=== PATIENT | female | born 1965 | race Caucasian/White ===

== ENCOUNTER → 2017-05-27 | Outpatient (CLI) | payer BC ==
[2017-05-27 07:49] LABS: CH 29.9; CHCM 32.1; HCT 48.1 % (34.0-46.0); HDW 1.99; HGB 15.7 gm/dL (11.4-16.0); MCH 30.5 pg (25.0-35.0); MCHC 32.7 g/dL (31.0-37.0); MCV 93.4 fL (80.0-100.0); Mean Platelet Volume 8.5; RBC 5.15 m/uL (3.80-5.40); RDW 13.1 % (11.5-15.5); WBC 8.2 k/uL (3.8-10.6)
[2017-05-27 08:12] LABS: ALT 61 U/L (9-52); AST 33 U/L (14-36); Alkaline Phosphatase 96 U/L (38-126); Anion Gap 10 mmol/L; Blood Urea Nitrogen 20 mg/dL (7-17); Calcium 9.7 mg/dL (8.4-10.2); Carbon Dioxide 28 mmol/L (22-30); Chloride 104 mmol/L (98-107); Cholesterol 187 mg/dL (<200); Glucose 86 mg/dL (74-99); HDL Cholesterol 74 mg/dL (40-60); Non-African American GFR(MDRD) >60 (>60 ml/min/1.73 sqM); Potassium 4.6 mmol/L (3.5-5.1); Sodium 142 mmol/L (137-145); Total Bilirubin 0.3 mg/dL (0.2-1.3); Total Protein 7.5 g/dL (6.3-8.2); Triglycerides 60 mg/dL (<150)
== END | disposition home or self-care (01) ==
LOC: LABWHC1 07:24
PROVIDERS: ATTEND Family Medicine
DX: Z00.00 Encounter for general adult medical examination without abnormal findings (principal); Z83.49 Family history of other endocrine, nutritional and metabolic diseases
CPT/HCPCS: 36415; 80053; 80061; 84439; 84443; 85027

== ENCOUNTER → 2017-09-10 | Outpatient (CLI) | payer BC ==
--- NOTE | 2017-09-12 10:54 | MM ---
Reason for exam: screening (asymptomatic). Last mammogram was performed 1 year ago. History: Took hormonal contraceptives for 10 years. Physical Findings: A clinical breast exam by your physician is recommended on an annual basis and results should be correlated with mammographic findings. MG Screening Mammo w CAD Bilateral CC and MLO view(s) were taken. Prior study comparison: August 29, 2016, bilateral MG screening mammo w CAD. August 28, 2015, bilateral MG screening mammo w CAD. There are scattered fibroglandular densities. No significant changes when compared with prior studies. ASSESSMENT: Negative, BI-RAD 1 RECOMMENDATION: Routine screening mammogram of both breasts in 1 year.
== END | disposition home or self-care (01) ==
LOC: RADMAMWWP 06:56
PROVIDERS: ATTEND Obstetrics & Gynecology
DX: Z12.31 Encounter for screening mammogram for malignant neoplasm of breast (principal)

== ENCOUNTER → 2018-08-11 | Outpatient (CLI) | payer BC ==
[2018-08-11 09:09] LABS: HCT 43.3 % (34.0-46.0); HGB 14.2 gm/dL (11.4-16.0); MCH 30.2 pg (25.0-35.0); MCHC 32.7 g/dL (31.0-37.0); MCV 92.2 fL (80.0-100.0); Mean Platelet Volume 8.2; Platelet Count 239 k/uL (150-450); RBC 4.69 m/uL (3.80-5.40); RDW 12.6 % (11.5-15.5); WBC 6.4 k/uL (3.8-10.6)
[2018-08-11 09:34] LABS: ALT 47 U/L (9-52); AST 32 U/L (14-36); Alkaline Phosphatase 71 U/L (38-126); Anion Gap 7 mmol/L; Blood Urea Nitrogen 20 mg/dL (7-17); Calcium 9.6 mg/dL (8.4-10.2); Carbon Dioxide 27 mmol/L (22-30); Chloride 108 mmol/L (98-107); Cholesterol 176 mg/dL (<200); Glucose 94 mg/dL (74-99); HDL Cholesterol 80 mg/dL (40-60); LDL Cholesterol,Calculated 89 mg/dL (0-99); Potassium 4.4 mmol/L (3.5-5.1); Sodium 142 mmol/L (137-145); Total Bilirubin 0.3 mg/dL (0.2-1.3); Total Protein 6.7 g/dL (6.3-8.2); Triglycerides 34 mg/dL (<150)
== END | disposition home or self-care (01) ==
LOC: LABWHC1 07:51
PROVIDERS: ATTEND Family Medicine
DX: Z00.00 Encounter for general adult medical examination without abnormal findings (principal); Z83.49 Family history of other endocrine, nutritional and metabolic diseases
CPT/HCPCS: 36415; 80053; 80061; 85027

== ENCOUNTER → 2018-09-23 | Outpatient (CLI) | payer BC ==
--- NOTE | 2018-09-28 10:19 | MM ---
Reason for exam: screening (asymptomatic). Last mammogram was performed 1 year ago. History: Took hormonal contraceptives for 10 years. Physical Findings: A clinical breast exam by your physician is recommended on an annual basis and results should be correlated with mammographic findings. MG Screening Mammo w CAD Bilateral CC and MLO view(s) were taken. Prior study comparison: September 10, 2017, bilateral MG screening mammo w CAD. August 29, 2016, bilateral MG screening mammo w CAD. The breast tissue is heterogeneously dense. This may lower the sensitivity of mammography. No significant changes when compared with prior studies. ASSESSMENT: Negative, BI-RAD 1 RECOMMENDATION: Routine screening mammogram of both breasts in 1 year.
== END | disposition home or self-care (01) ==
LOC: RADMAMWWP 07:08
PROVIDERS: ATTEND Obstetrics & Gynecology
DX: Z12.31 Encounter for screening mammogram for malignant neoplasm of breast (principal)
CPT/HCPCS: 77067

== ENCOUNTER 2019-01-15 22:03 | Emergency (ER) | payer BC ==
--- NOTE | 2019-01-15 22:19 | ED ---
Arrhythmia/Palpitations HPI - General Chief Complaint: Arrhythmia/Palpitations Stated Complaint: High Heart Rate Time Seen by Provider: 01/15/19 22:17 Source: patient, family Mode of arrival: ambulatory Limitations: no limitations - History of Present Illness Initial Comments: This patient is a 53-year-old woman who presents to be evaluated for palpitat ions. The patient states that she was feeling somewhat fatigued this evening so she had gone to bed early around 8 PM. She states she woke around 10 PM with a feeling like her heart was "beating out of her chest." She states she also was feeling like she couldn't catch her breath and felt sweaty. Patient denies having any chest pain. She states she has not had episodes like this previously. The patient denies history of sleep apnea but states she does snore. The patient states that the symptoms have seemed to resolve over the 20th 30 minutes that followed. She states that she feels back at her baseline now. MD Complaint: "heart racing" -: minutes(s) Context: awoke with symptoms Associated Symptoms: shortness of breath, anxiety, diaphoresis - Related Data Home Medications Medication Instructions Recorded Confirmed Fluticasone/Vilanterol [Breo 1 puff INHALATION RT-DAILY 01/15/19 01/15/19 Ellipta 200-25 Mcg INH] Montelukast [Singulair] 10 mg PO HS 01/15/19 01/15/19 Allergies Allergy/AdvReac Type Severity Reaction Status Date / Time amoxicillin Allergy Rash/Hives Verified 01/15/19 22:39 egg Allergy Dyspnea Verified 01/15/19 22:39 Penicillins Allergy Rash/Hives Verified 01/15/19 22:39 Review of Systems ROS Statement: Those systems with pertinent positive or pertinent negative responses have been documented in the HPI. ROS Other: All systems not noted in ROS Statement are negative. Constitutional: Denies: fever, weakness Eyes: Denies: vision change Respiratory: Reports: as per HPI. Denies: cough, dyspnea, wheezes, hemoptysis Cardiovascular: Reports: palpitations. Denies: chest pain, dyspnea on exertion, edema, syncope Gastrointestinal: Denies: abdominal pain, vomiting, melena, hematochezia Genitourinary: Denies: dysuria, hematuria Musculoskeletal: Denies: back pain Skin: Denies: rash Neurological: Denies: headache, weakness, numbness Past Medical History Past Medical History: Asthma History of Any Multi-Drug Resistant Organisms: None Reported Past Surgical History: No Surgical Hx Reported Past Psychological History: No Psychological Hx Reported Smoking Status: Former smoker Past Alcohol Use History: None Reported Past Drug Use History: None Reported General Exam Limitations: no limitations General appearance: alert, in no apparent distress Head exam: Present: atraumatic, normocephalic Eye exam: Present: normal appearance. Absent: scleral icterus, conjunctival in jection ENT exam: Present: normal oropharynx Neck exam: Present: normal inspection Respiratory exam: Present: normal lung sounds bilaterally. Absent: respiratory distress, wheezes, rales, rhonchi, stridor Cardiovascular Exam: Present: regular rate, normal rhythm, normal heart sounds. Absent: systolic murmur, diastolic murmur, rubs, gallop GI/Abdominal exam: Present: soft. Absent: distended, tenderness, guarding, rebound, rigid, mass Extremities exam: Present: normal inspection, normal capillary refill. Absent: pedal edema, calf tenderness Back exam: Present: normal inspection. Absent: CVA tenderness (R), CVA tend erness (L) Neurological exam: Present: alert Skin exam: Present: warm, dry, intact, normal color. Absent: rash Course Vital Signs 01/15/19 01/15/19 01/15/19 22:06 22:16 23:10 Temperature 97.9 F Pulse Rate 122 H 96 Respiratory 18 Rate Blood Pressure 146/84 143/94 148/91 O2 Sat by Pulse 100 97 93 L Oximetry EKG Findings - EKG Results: EKG: interpreted by ERMD, sinus rhythm, normal QRS, normal ST/T EKG shows: tachycardia (Rate 104 bpm) - Blocks, [place], Hypertrophy, ST Abn: QRS axis and voltage: right axis deviation (+90 to +180) Medical Decision Making - Lab Data Result diagrams: 01/15/19 22:23 01/15/19 22:23 Lab Results 01/15/19 01/15/19 01/15/19 Range/Units 22:23 22:23 22:23 WBC 9.8 (3.8-10.6) k/uL RBC 5.26 (3.80-5.40) m/uL Hgb 15.2 (11.4-16.0) gm/dL Hct 48.3 H (34.0-46.0) % MCV 91.9 (80.0-100.0) fL MCH 28.9 (25.0-35.0) pg MCHC 31.4 (31.0-37.0) g/dL RDW 13.0 (11.5-15.5) % Plt Count 278 (150-450) k/uL Neutrophils % 43 % Lymphocytes % 43 % Monocytes % 5 % Eosinophils % 7 % Basophils % 1 % Neutrophils # 4.2 (1.3-7.7) k/uL Lymphocytes # 4.2 (1.0-4.8) k/uL Monocytes # 0.5 (0-1.0) k/uL Eosinophils # 0.7 (0-0.7) k/uL Basophils # 0.1 (0-0.2) k/uL PT 9.4 (9.0-12.0) sec INR 0.8 (<1.2) APTT 29.4 (22.0-30.0) sec D-Dimer <0.17 (<0.60) mg/L FEU Sodium 138 (137-145) mmol/L Potassium 4.4 (3.5-5.1) mmol/L Chloride 106 (98-107) mmol/L Carbon Dioxide 24 (22-30) mmol/L Anion Gap 8 mmol/L BUN 20 H (7-17) mg/dL Creatinine 0.43 L (0.52-1.04) mg/dL Est GFR (CKD-EPI)AfAm >90 (>60 ml/min/1.73 sqM) Est GFR (CKD-EPI)NonAf >90 (>60 ml/min/1.73 sqM) Glucose 140 H (74-99) mg/dL Calcium 9.7 (8.4-10.2) mg/dL Magnesium 2.2 (1.6-2.3) mg/dL Total Bilirubin 0.5 (0.2-1.3) mg/dL AST 41 H (14-36) U/L ALT 40 (9-52) U/L Alkaline Phosphatase 118 (38-126) U/L Troponin I (0.000-0.034) ng/mL Total Protein 7.4 (6.3-8.2) g/dL Albumin 4.4 (3.5-5.0) g/dL TSH 6.670 H (0.465-4.680) mIU/L 01/15/19 Range/Units 22:23 WBC (3.8-10.6) k/uL RBC (3.80-5.40) m/uL Hgb (11.4-16.0) gm/dL Hct (34.0-46.0) % MCV (80.0-100.0) fL MCH (25.0-35.0) pg MCHC (31.0-37.0) g/dL RDW (11.5-15.5) % Plt Count (150-450) k/uL Neutrophils % % Lymphocytes % % Monocytes % % Eosinophils % % Basophils % % Neutrophils # (1.3-7.7) k/uL Lymphocytes # (1.0-4.8) k/uL Monocytes # (0-1.0) k/uL Eosinophils # (0-0.7) k/uL Basophils # (0-0.2) k/uL PT (9.0-12.0) sec INR (<1.2) APTT (22.0-30.0) sec D-Dimer (<0.60) mg/L FEU Sodium (137-145) mmol/L Potassium (3.5-5.1) mmol/L Chloride (98-107) mmol/L Carbon Dioxide (22-30) mmol/L Anion Gap mmol/L BUN (7-17) mg/dL Creatinine (0.52-1.04) mg/dL Est GFR (CKD-EPI)AfAm (>60 ml/min/1.73 sqM) Est GFR (CKD-EPI)NonAf (>60 ml/min/1.73 sqM) Glucose (74-99) mg/dL Calcium (8.4-10.2) mg/dL Magnesium (1.6-2.3) mg/dL Total Bilirubin (0.2-1.3) mg/dL AST (14-36) U/L ALT (9-52) U/L Alkaline Phosphatase (38-126) U/L Troponin I <0.012 (0.000-0.034) ng/mL Total Protein (6.3-8.2) g/dL Albumin (3.5-5.0) g/dL TSH (0.465-4.680) mIU/L Disposition Clinical Impression: Palpitations Disposition: HOME SELF-CARE Condition: Good Instructions (If sedation given, give patient instructions): Heart Palpitations (ED) Additional Instructions: As we discussed, follow with your doctor to see about a sleep study. Also follow-up to have the thyroid test rechecked. Return immediately if any of the symptoms that we discussed develop. Is patient prescribed a controlled substance at d/c from ED?: No Referrals: Matias Goode MD [Primary Care Provider] - 1-2 days
[2019-01-15 22:48] LABS: Basophils # (A) 0.1 k/uL (0-0.2); Basophils % (A) 1 %; Eosinophils # (A) 0.7 k/uL (0-0.7); Eosinophils % (A) 7 %; HCT 48.3 % (34.0-46.0); HGB 15.2 gm/dL (11.4-16.0); Lymphocytes # (A) 4.2 k/uL (1.0-4.8); Lymphocytes % (A) 43 %; MCH 28.9 pg (25.0-35.0); MCHC 31.4 g/dL (31.0-37.0); MCV 91.9 fL (80.0-100.0); Mean Platelet Volume 8.6; Monocytes # (A) 0.5 k/uL (0-1.0); Monocytes % (A) 5 %; Neutrophils # (A) 4.2 k/uL (1.3-7.7); Neutrophils % (A) 43 %; Platelet Count 278 k/uL (150-450); RBC 5.26 m/uL (3.80-5.40); WBC 9.8 k/uL (3.8-10.6)
[2019-01-15 22:58] LABS: Albumin 4.4 g/dL (3.5-5.0); Anion Gap 8 mmol/L; Calcium 9.7 mg/dL (8.4-10.2); Carbon Dioxide 24 mmol/L (22-30); Chloride 106 mmol/L (98-107); Glucose 140 mg/dL (74-99); Sodium 138 mmol/L (137-145); Total Bilirubin 0.5 mg/dL (0.2-1.3); Total Protein 7.4 g/dL (6.3-8.2)
[2019-01-15 22:59] LABS: ALT 40 U/L (9-52); AST 41 U/L (14-36); Alkaline Phosphatase 118 U/L (38-126); Blood Urea Nitrogen 20 mg/dL (7-17); Magnesium 2.2 mg/dL (1.6-2.3); Potassium 4.4 mmol/L (3.5-5.1)
[2019-01-15 23:03] LABS: D-Dimer <0.17 mg/L FEU (<0.60); INR 0.8 (<1.2); Partial Thromboplastin Time 29.4 sec (22.0-30.0); Prothrombin Time 9.4 sec (9.0-12.0)
--- NOTE | 2019-01-15 23:14 | XR ---
EXAM: XR Chest, 2 Views CLINICAL HISTORY: dysrhythmia TECHNIQUE: Frontal and lateral views of the chest. COMPARISON: No relevant prior studies available. FINDINGS: Lungs: Unremarkable. No consolidation. Pleural space: Unremarkable. No pneumothorax. Heart: Unremarkable. No cardiomegaly. Mediastinum: Unremarkable. Bones/joints: No acute osseous abnormality. IMPRESSION: No acute cardiopulmonary process.
[2019-01-16 00:14] VITALS: BP 130/93; PULSE 91; RESP 19; TEMP 98.3
== END 2019-01-16 00:11 | disposition home or self-care (01) ==
LOC: EC 22:03
DX: R00.2 Palpitations (principal); R06.02 Shortness of breath; R61 Generalized hyperhidrosis; J45.909 Unspecified asthma, uncomplicated; G47.30 Sleep apnea, unspecified; Z87.891 Personal history of nicotine dependence; Z79.51 Long term (current) use of inhaled steroids; Z79.899 Other long term (current) drug therapy; Z88.0 Allergy status to penicillin; Z91.012 Allergy to eggs
CPT/HCPCS: 36415; 71046; 80053; 83735; 84443; 84484; 85025; 85379; 85610; 85730; 93005; 99285

== ENCOUNTER → 2019-04-02 | Outpatient (CLI) | payer BC ==
[2019-04-02 17:19] LABS: T4, Free (Free Thyroxine) 1.7 ng/dL (0.80-1.80)
== END | disposition home or self-care (01) ==
LOC: LABWHC1 06:45
PROVIDERS: ATTEND Family Medicine
DX: E03.9 Hypothyroidism, unspecified (principal)
CPT/HCPCS: 36415; 84439; 84443; 84481

== ENCOUNTER → 2019-05-11 | Outpatient (CLI) | payer BC ==
[2019-05-11 17:49] LABS: T4, Free (Free Thyroxine) 1.4 ng/dL (0.80-1.80)
== END | disposition home or self-care (01) ==
LOC: LABWHC1 06:36
PROVIDERS: ATTEND Family Medicine
DX: E03.9 Hypothyroidism, unspecified (principal)
CPT/HCPCS: 36415; 84439; 84443; 84481

== ENCOUNTER → 2019-06-29 | Outpatient (CLI) | payer BC | END | disposition home or self-care (01) | LOC: LABWHC1 07:01 | PROVIDERS: ATTEND Internal Medicine Endocrinology, Diabetes & Metabolism | DX: E03.8 Other specified hypothyroidism (principal) | CPT/HCPCS: 36415; 84443 ==

== ENCOUNTER → 2019-07-28 | Outpatient (CLI) | payer BC ==
[2019-07-28 08:54] LABS: HCT 45.5 % (34.0-46.0); HGB 15.2 gm/dL (11.4-16.0); MCH 30.1 pg (25.0-35.0); MCHC 33.3 g/dL (31.0-37.0); MCV 90.3 fL (80.0-100.0); Mean Platelet Volume 8.2; Platelet Count 271 k/uL (150-450); RBC 5.04 m/uL (3.80-5.40); RDW 15.2 % (11.5-15.5); WBC 6.9 k/uL (3.8-10.6)
[2019-07-28 16:41] LABS: African American GFR (CKD) 129.9 (60.0-200.0); Albumin 4.6 g/dL (3.80-4.90); Albumin/Globulin Ratio 2.3 (1.60-3.17); Anion Gap 10.6 mmol/L (4.00-12.00); Calcium 9.8 mg/dL (8.7-10.3); Carbon Dioxide 26.4 mmol/L (21.6-31.8); Chol/HDL Ratio 2.42; LDL Cholesterol,Calculated 112.4 mg/dL (0.0-131.0); Potassium 4.8 mmol/L (3.5-5.5); Total Bilirubin 0.5 mg/dL (0.2-1.2); Total Protein 6.6 g/dL (6.2-8.2); VLDL Calculation 13.6 mg/dL (5.00-40.00)
[2019-07-28 16:49] LABS: T4, Free (Free Thyroxine) 1.3 ng/dL (0.80-1.80)
== END | disposition home or self-care (01) ==
LOC: LABWHC1 07:13
PROVIDERS: ATTEND Family Medicine
DX: Z00.01 Encounter for general adult medical examination with abnormal findings (principal); E66.3 Overweight; E03.9 Hypothyroidism, unspecified
CPT/HCPCS: 36415; 80053; 80061; 84439; 84443; 84481; 85027

== ENCOUNTER → 2019-10-12 | Outpatient (CLI) | payer BC ==
--- NOTE | 2019-10-14 10:07 | MM ---
Reason for exam: screening (asymptomatic). Last mammogram was performed 1 year and 1 month ago. History: Took hormonal contraceptives for 10 years. Physical Findings: A clinical breast exam by your physician is recommended on an annual basis and results should be correlated with mammographic findings. MG Screening Mammo w CAD Bilateral CC and MLO view(s) were taken. Prior study comparison: September 23, 2018, bilateral MG screening mammo w CAD. September 10, 2017, bilateral MG screening mammo w CAD. The breast tissue is heterogeneously dense. This may lower the sensitivity of mammography. No suspicious abnormality. No significant changes when compared with prior studies. ASSESSMENT: Negative, BI-RAD 1 RECOMMENDATION: Routine screening mammogram of both breasts in 1 year.
== END | disposition home or self-care (01) ==
LOC: RADMAMWWP 06:51
PROVIDERS: ATTEND Obstetrics & Gynecology
DX: Z12.31 Encounter for screening mammogram for malignant neoplasm of breast (principal)
CPT/HCPCS: 77067

== ENCOUNTER → 2020-04-14 | Outpatient (CLI) | payer BC | END | disposition home or self-care (01) | LOC: CPPFTMAIN 07:13 | PROVIDERS: ATTEND Internal Medicine Critical Care Medicine | DX: J44.9 Chronic obstructive pulmonary disease, unspecified (principal) | CPT/HCPCS: 94060; 94726; 94729 ==

== ENCOUNTER → 2020-05-02 | Outpatient (CLI) | payer BC ==
[2020-05-02 11:57] LABS: T4, Free (Free Thyroxine) 1.6 ng/dL (0.80-1.80)
[2020-05-02 12:29] LABS: Hemoglobin A1C 5.7 % (4.0-6.0)
== END | disposition home or self-care (01) ==
LOC: LABWHC1 07:04
PROVIDERS: ATTEND Internal Medicine Endocrinology, Diabetes & Metabolism
DX: E03.9 Hypothyroidism, unspecified (principal); E55.9 Vitamin D deficiency, unspecified; E88.9 Metabolic disorder, unspecified
CPT/HCPCS: 36415; 82306; 82947; 83036; 84439; 84443; 84481

== ENCOUNTER → 2020-07-28 | Outpatient (CLI) | payer BC ==
[2020-07-28 08:15] LABS: HCT 47.1 % (34.0-46.0); HGB 14.7 gm/dL (11.4-16.0); MCH 28.8 pg (25.0-35.0); MCHC 31.3 g/dL (31.0-37.0); MCV 92.2 fL (80.0-100.0); Mean Platelet Volume 8.1; Platelet Count 271 k/uL (150-450); RBC 5.11 m/uL (3.80-5.40); RDW 12.5 % (11.5-15.5); WBC 7.4 k/uL (3.8-10.6)
[2020-07-28 12:20] LABS: African American GFR (CKD) 121.5 (60.0-200.0); Albumin 4.4 g/dL (3.80-4.90); Albumin/Globulin Ratio 2.1 (1.60-3.17); Anion Gap 10.9 mmol/L (4.00-12.00); BUN/Creat Ratio 28.33 Ratio (12.00-20.00); Calcium 9.7 mg/dL (8.7-10.3); Carbon Dioxide 23.1 mmol/L (21.6-31.8); Chol/HDL Ratio 2.96; Globulin 2.1 g/dL (1.6-3.3); LDL Cholesterol,Calculated 123.2 mg/dL (0.0-131.0); Non-African American GFR(CKD) 104.8 (60.0-200.0); Potassium 4.7 mmol/L (3.5-5.5); Total Bilirubin 0.4 mg/dL (0.3-1.2); Total Protein 6.5 g/dL (6.2-8.2); VLDL Calculation 13.8 mg/dL (5.00-40.00)
[2020-07-28 12:28] LABS: T4, Free (Free Thyroxine) 1.4 ng/dL (0.80-1.80)
== END | disposition home or self-care (01) ==
LOC: LABWHC1 07:30
PROVIDERS: ATTEND Family Medicine
DX: Z00.01 Encounter for general adult medical examination with abnormal findings (principal); E55.9 Vitamin D deficiency, unspecified; E03.9 Hypothyroidism, unspecified; E66.3 Overweight
CPT/HCPCS: 36415; 80053; 80061; 82306; 84439; 84443; 84481; 85027

== ENCOUNTER → 2020-12-07 | Outpatient (CLI) | payer BC ==
--- NOTE | 2020-12-08 14:15 | MM ---
Reason for exam: screening (asymptomatic). Last mammogram was performed 1 year and 2 months ago. History: Patient is postmenopausal. Took hormonal contraceptives for 10 years. Physical Findings: A clinical breast exam by your physician is recommended on an annual basis and results should be correlated with mammographic findings. MG Screening Mammo w CAD Bilateral CC and MLO view(s) were taken. Prior study comparison: October 12, 2019, bilateral MG screening mammo w CAD. September 23, 2018, bilateral MG screening mammo w CAD. There are scattered fibroglandular densities. There is chronic nodularity in the right breast. No significant changes when compared with prior studies. ASSESSMENT: Benign, BI-RAD 2 RECOMMENDATION: Routine screening mammogram of both breasts in 1 year.
== END | disposition home or self-care (01) ==
LOC: RADMAMWWP 06:58
PROVIDERS: ATTEND Obstetrics & Gynecology
DX: Z12.31 Encounter for screening mammogram for malignant neoplasm of breast (principal)
CPT/HCPCS: 77067

== ENCOUNTER → 2020-12-13 | Outpatient (CLI) | payer BC ==
--- NOTE | 2020-12-13 13:24 | XR ---
Bilateral hands HISTORY: Pain, arthritis 3 views of each hand submitted Bone mineralization is reduced. Alignment is maintained. No fracture or dislocation. Small ossific de nsities present dorsal to the second distal interphalangeal joint which is well-corticated. Small oss ific density present distal to the ulnar styloid. Some subchondral sclerosis, marginal spurring prese nt at the distal interphalangeal joints IMPRESSION: Osteoarthritis.
--- NOTE | 2020-12-13 13:42 | XR ---
Bilateral feet HISTORY: Pain and arthritis 3 views of each foot submitted. Bone mineralization is reduced. Alignment maintained. There is loss of joint spaces especially at the metatarsophalangeal joints of the first digits, distal interphalangeal joints. Plantar calcaneal spurs are present. IMPRESSION: Osteopenia, osteoarthritis. Plantar calcaneal spurs.
== END | disposition home or self-care (01) ==
LOC: RADXRMAIN 11:14
PROVIDERS: ATTEND Internal Medicine Rheumatology
DX: M19.072 Primary osteoarthritis, left ankle and foot (principal); M19.071 Primary osteoarthritis, right ankle and foot; M19.042 Primary osteoarthritis, left hand; M19.041 Primary osteoarthritis, right hand; M77.32 Calcaneal spur, left foot; M77.31 Calcaneal spur, right foot

== ENCOUNTER → 2021-01-12 | Outpatient (CLI) | payer BC ==
[2021-01-12 15:26] LABS: Basophils # (A) 0.05 X 10*3/uL (0.00-0.10); Basophils % (A) 0.6 %; Eosinophils # (A) 0.54 X 10*3/uL (0.04-0.35); Eosinophils % (A) 6.8 %; HCT 47.1 % (37.2-46.3); HGB 15.1 g/dL (12.0-15.0); Lymphocytes # (A) 3.01 X 10*3/uL (0.90-5.00); Lymphocytes % (A) 37.9 %; MCH 29.1 pg (27.0-32.0); MCHC 32.1 g/dL (32.0-37.0); MCV 90.8 fL (80.0-97.0); Mean Platelet Volume 11.9 fL (9.5-12.2); Monocytes % (A) 6.3 %; Neutrophils # (A) 3.82 X 10*3/uL (1.80-7.70); Platelet Count 301 X 10*3/uL (140-440); RBC 5.19 X 10*6/uL (4.10-5.20); RDW 12.7 % (11.5-14.5); WBC 7.95 X 10*3/uL (4.50-10.00)
[2021-01-12 18:13] LABS: Gliadin AB IgA, Deaminated NEGATIVE (NEGATIVE); Gliadin AB IgA, Unit 0.8 U/mL; Gliadin AB IgG, Deaminated NEGATIVE (NEGATIVE)
[2021-01-12 19:25] LABS: African American GFR (CKD) 128.1 (60.0-200.0); Albumin 4.7 g/dL (3.80-4.90); Albumin/Globulin Ratio 2.04 (1.60-3.17); Anion Gap 11.5 mmol/L (4.00-12.00); Calcium 9.9 mg/dL (8.7-10.3); Carbon Dioxide 22.5 mmol/L (21.6-31.8); Globulin 2.3 g/dL (1.6-3.3); Non-African American GFR(CKD) 110.5 (60.0-200.0); Total Bilirubin 0.3 mg/dL (0.2-1.2)
== END | disposition home or self-care (01) ==
LOC: LABWHC1 09:18
PROVIDERS: ATTEND Nurse Practitioner
DX: R19.7 Diarrhea, unspecified (principal)
CPT/HCPCS: 36415; 80053; 83516; 85025

== ENCOUNTER 2021-01-23 07:50 | Day surgery (SDC) | payer BC ==
[2021-01-19 09:03] VITALS: BMI 32.7
[2021-01-23] MEDS ORDERED: LIDOCAINE 1% (10MG/ML) FOR IV START INTRADERMA ONE (08:25)
[2021-01-23] MEDS: LACTATED RINGERS 1,000 ML IV SCH ×2 (08:25→09:10)
[2021-01-23 08:33] VITALS: RESP 16; TEMP 97.2
[2021-01-23] MEDS ORDERED: fentaNYL (PF) 50 MCG/ML 2 ML AMP ONE (09:13)
[2021-01-23] MEDS ORDERED: MIDAZOLAM 2 MG/2 ML VIAL ONE (09:13)
[2021-01-23] MEDS ORDERED: ETOMIDATE 2 MG/ML 10 ML VIAL ONE (09:13)
[2021-01-23] MEDS ORDERED: LIDOCAINE 1% INJ 10MG/ML (20 ML MDV) ONE (09:13)
--- NOTE | 2021-01-23 09:58 | P.PCN ---
Date of Procedure: 01/23/21 Description of Procedure: Brief history: Patient is a 55-year-old female with a medical history significant for lactose intolerance, asthma, hypothyroidism, Raynaud's and osteoarthritis presenting for outpatient EGD and colonoscopy for evaluation of GERD and diarrhea. Patient reports intermittent reflux over the past 5 months described as burning and reflux/regurgitation. No history of EGD. She reports frequent episodes of loose bowel movements with associated urgency and mucus per rectum. Procedure performed: Esophagogastroduodenoscopy with biopsy Colonoscopy Estimated blood loss: Minimal. Preoperative diagnosis: GERD, diarrhea Anesthesia: [facility] Procedure: After informed consent was obtained from the patient was brought into the endoscopy unit and IV sedation was administered by anesthesia under continuous monitoring. Initially upper endoscopy was done. The Olympus GF 190 video endoscope was inserted into the mouth and esophagus intubated without any difficulty and was gradually advanced into the stomach and duodenum and carefully examined. The bulb and second part of the duodenum appeared normal, with biopsies taken. The scope was then withdrawn into the stomach adequately insufflated with air and upon careful examination the antrum and body, cardia a nd fundus appeared normal, with some mild scattered erythema in the antrum and body suggestive of mild gastritis with biopsies of the antrum and body taken as well as some benign-appearing. The scope was then withdrawn into the esophagus. The GE junction was located at 35 cm to the incisors and biopsied. It appeared regular with no erythema erosions or ulcerations. Rest of the esophagus appear ed normal. Patient tolerated the procedure well. At this time the patient continued to remain sedation. Initial digital rectal examination was normal. Olympus CF 190 video colonoscope was then inserted into the rectum and gradually advanced to the cecum without any difficulty. Careful examination was performed as the scope was gradually being withdrawn. The prep was excellent. The cecum, ascending colon, transverse colon, descending colon, sigmoid colon and rectum appeared normal with biopsies taken of the right and left colon due to altered bowel function and of normal-appearing terminal ileum. 2 diminutive polyps measuring 1-2 mm in size removed from the descending colon and cecum with cold forcep polypectomy. Retroflexion was performed in the rectum and no lesions were noted, low-grade internal hemorrhoids. Patient tolerated the procedure well. Impression: 1. Mild gastritis. Benign-appearing gastric polyps likely fundic gland polyp. Biopsies of the duodenum, antrum body, gastric polyps and GE junction. 2. 2 diminutive polyps removed with cold forcep polypectomy from the cecum and descending colon. Normal-appearing colon from rectum to cecum with normal- appearing terminal ileum and random biopsies taken of the right colon, left colon and TI in the setting of altered bowel function and diarrhea. Recommendations: Findings of this examination were discussed with the patient as well as and her family. Okay to resume diet. Okay to resume medications. Await pathology from biopsies and polypectomy. Recommend repeat colonoscopy in 7 years for colon polyps pending pathology from polypectomies.
[2021-01-23 10:33] VITALS: BP 108/74; PULSE 86
== END 2021-01-23 11:24 | disposition home or self-care (01) ==
LOC: ORWHC2ENDO 07:50
PROVIDERS: ATTEND Internal Medicine
DX: K29.70 Gastritis, unspecified, without bleeding (principal); K31.7 Polyp of stomach and duodenum; D12.0 Benign neoplasm of cecum; K64.8 Other hemorrhoids; Z87.891 Personal history of nicotine dependence; Z88.0 Allergy status to penicillin; Z91.012 Allergy to eggs; Z79.890 Hormone replacement therapy; Z79.899 Other long term (current) drug therapy; Z98.890 Other specified postprocedural states; J45.909 Unspecified asthma, uncomplicated; E07.9 Disorder of thyroid, unspecified; D72.820 Lymphocytosis (symptomatic); K29.50 Unspecified chronic gastritis without bleeding
CPT/HCPCS: 88305; 88342; 45380; 43239; J2250; J2001; J3010

== ENCOUNTER → 2021-05-11 | Outpatient (CLI) | payer BC | END | disposition home or self-care (01) | DX: E03.9 Hypothyroidism, unspecified (principal) ==

== ENCOUNTER 2021-08-02 15:35 | Emergency (ER) | payer BC ==
[2021-08-02 15:41] VITALS: TEMP 98.1
[2021-08-02] MEDS ORDERED: MORPHINE SULFATE 2 MG/ML SYRINGE IM ONE (15:48)
--- NOTE | 2021-08-02 15:53 | ED ---
General Adult HPI - General Chief complaint: Extremity Injury, Upper Stated complaint: Fall Time Seen by Provider: 08/02/21 15:42 Source: patient, family, RN notes reviewed Mode of arrival: ambulatory Limitations: no limitations - History of Present Illness Initial comments: This is a tearful 55-year-old female, alert and oriented 4, presents to the em ergency room with complaints of getting her left foot caught in the car while trying to get out falling outward onto the ground onto her left shoulder. She states that she is unable to bear weight on the left foot and she is also unable to lift her left arm. She does have a history of bilateral clavicle fractures in the past. The pain is constant and happened about one hour ago. She denies hitting her head is not on any blood thinners. Denies loss of consciousness. Her only medical history is asthma. -: hour(s) (1) Location: left, upper extremity (Shoulder), lower extremity (Ankle) Radiation: non-radiation Severity scale (1-10): 7 Quality: constant Consistency: constant Improves with: immobilization Worsens with: movement Associated Symptoms: denies other symptoms Treatments Prior to Arrival: none - Related Data Home Medications Medication Instructions Recorded Confirmed Fluticasone/Vilanterol [Breo 1 puff INHALATION RT-DAILY 01/15/19 08/02/21 Ellipta 200-25 Mcg INH] Montelukast [Singulair] 10 mg PO HS 01/15/19 08/02/21 Levothyroxine Sodium [Synthroid] 50 mcg PO DIRECTED 01/19/21 08/02/21 Allergies Allergy/AdvReac Type Severity Reaction Status Date / Time amoxicillin Allergy Rash/Hives Verified 08/02/21 17:46 egg Allergy Anaphylaxis Verified 08/02/21 17:46 milk Allergy Anaphylaxis Verified 08/02/21 17:46 Penicillins Allergy Rash/Hives Verified 08/02/21 17:46 Review of Systems ROS Statement: Those systems with pertinent positive or pertinent negative responses have been documented in the HPI. ROS Other: All systems not noted in ROS Statement are negative. Past Medical History Past Medical History: Asthma Additional Past Medical History / Comment(s): reoccuring diarrhea, lots of acid reflux coming up throat History of Any Multi-Drug Resistant Organisms: None Reported Past Surgical History: No Surgical Hx Reported Additional Past Surgical History / Comment(s): lymph nodes removed from neck, cyst removed from neck, ganglion cyst removed right wrist Past Anesthesia/Blood Transfusion Reactions: No Reported Reaction Past Psychological History: No Psychological Hx Reported Smoking Status: Former smoker General Exam Limitations: no limitations General appearance: alert, in no apparent distress Head exam: Present: atraumatic, normocephalic, normal inspection Eye exam: Present: normal appearance, PERRL, EOMI. Absent: scleral icterus, conjunctival injection, periorbital swelling ENT exam: Present: normal exam, normal oropharynx, mucous membranes moist Neck exam: Present: normal inspection, full ROM. Absent: tenderness, meningismus, lymphadenopathy Respiratory exam: Present: normal lung sounds bilaterally. Absent: respiratory distress, wheezes, rales, rhonchi, stridor, decreased breath sounds Cardiovascular Exam: Present: regular rate, normal rhythm, normal heart sounds. Absent: systolic murmur, diastolic murmur, rubs, gallop, clicks GI/Abdominal exam: Present: soft, normal bowel sounds. Absent: distended, tenderness, guarding, rebound, rigid Left Shoulder Exam: Present: tenderness. Absent: full ROM, abrasion, laceration Neurosensory exam: Present: 2-point discrimination, radial nerve intact, ulnar nerve intact, median nerve intact Vascular: Present: normal capillary refill, radial pulse. Absent: vascular compromise Left Ankle exam: Present: tenderness, swelling. Absent: erythema Foot/Toe exam: Present: normal inspection. Absent: ecchymosis Neurovascular tendon exam: Present: no vascular compromise. Absent: abnormal cap refill Gait: unable to bear weight Back exam: Present: normal inspection. Absent: tenderness Neurological exam: Present: alert, oriented X3, CN II-XII intact Psychiatric exam: Present: normal affect, normal mood, anxious, other (Crying) Skin exam: Present: warm, dry, intact, normal color. Absent: rash, cyanosis, diaphoretic, petechiae, pallor Course Vital Signs 08/02/21 08/02/21 15:37 18:00 Temperature 98.1 F Pulse Rate 80 65 Respiratory 16 20 Rate Blood Pressure 107/56 95/64 O2 Sat by Pulse 97 99 Oximetry Procedures - Orthopedic Splinting/Casting Injury #1 Side: left Lower Extremity Injury Location: short leg Lower Extremity Immobilizer: posterior splint, Zac wrap, synthetic pre-padded splint Injury #2 Side: left Upper Extremity Immobilizer: sling/shoulder immobilizer Medical Decision Making - Medical Decision Making X-ray of left shoulder shows fracture to the proximal lateral left humerus with impaction. There is evidence of surrounding hemearthrosis. The AC joint is intact. X-ray of the left ankle shows a trimalleolar fracture of the left ankle with displacement of the lateral malleolus component 2 mm. There is widening of the medial tibial talar joint space of 3.4 mm. patient's pain is improved with morphine. She is agreeable to being transferred to [facility] for continuation of care for fractures. I did speak with Dr. Avery who accepted the patient. Patient has neurovascularly intact. Capillary refill is less than 2 seconds. Pedal pulses are present. Patient was put in a short leg splint. Left arm was placed in a sling. Patient was accepted by ER attending Dr. Lynch at 1800. The trauma surgeon is Dr. Lyon. She'll be sent by ambulance. Disposition Clinical Impression: Fracture of humerus, Trimalleolar fracture of ankle, closed Disposition: OTHER INSTITUTION NOT DEFINED Is patient prescribed a controlled substance at d/c from ED?: No Referrals: Matias Goode MD [Primary Care Provider] - 1-2 days Time of Disposition: 17:48 - Out of Hospital Transfer - Req. Specs Out of Hospital Transfer - Requested Specifics: Other Emergency Center ([facility])
--- NOTE | 2021-08-02 16:30 | XR ---
EXAMINATION TYPE: XR ankle complete LT, XR tibia fibula LT DATE OF EXAM: 08/02/2021 COMPARISON: NONE HISTORY: Pain TECHNIQUE: 3 views of the left ankle are submitted for evaluation. 2 views of left tibia and fibula a re also submitted. FINDINGS: There is evidence of trimalleolar fracture with components noted of the lateral malleolus, medial malleolus and posterior tibial malleolus. Displacement lateral malleolar component of 2 mm. Morgan rrounding soft tissue swelling noted. Widening of the medial tibiotalar joint space of 3.4 mm. Mild w idening of the ankle mortise. The remainder of the tibia and fibula are intact. IMPRESSION: 1. Trimalleolar fracture of the left ankle.
--- NOTE | 2021-08-02 16:32 | XR ---
EXAMINATION TYPE: XR shoulder complete LT, XR clavicle LT DATE OF EXAM: 08/02/2021 CLINICAL HISTORY: pain COMPARISON: NONE TECHNIQUE: Three views of the left shoulder are obtained. 2 views of the left clavicle are also subm itted. FINDINGS: There is fracture of the left humeral neck with impaction seen. Fracture component noted of the greater humeral tuberosity as well. There is evidence of surrounding hemarthrosis. No additional fractures seen. AC joint intact. IMPRESSION: 1 fractures proximal lateral left humerus as noted.
[2021-08-02] MEDS ORDERED: SODIUM CHLORIDE 0.9% 500 ML 500 ML IV STA (17:39)
[2021-08-02 18:05] VITALS: BP 95/64; PULSE 65; RESP 20
== END 2021-08-02 19:05 | disposition other institution (70) ==
LOC: EC 15:35
DX: S42.201A Unspecified fracture of upper end of right humerus, initial encounter for closed fracture (principal); S82.852A Displaced trimalleolar fracture of left lower leg, initial encounter for closed fracture; J45.909 Unspecified asthma, uncomplicated; Z87.891 Personal history of nicotine dependence; Z88.0 Allergy status to penicillin; Z91.012 Allergy to eggs; Z91.011 Allergy to milk products; Z79.51 Long term (current) use of inhaled steroids; W18.30XA Fall on same level, unspecified, initial encounter; Y92.89 Other specified places as the place of occurrence of the external cause
CPT/HCPCS: 96360; 96372; 99284; 73030; 73000; 73590; 73610; J2270

== ENCOUNTER → 2021-11-23 | Outpatient (CLI) | payer BC ==
--- NOTE | 2021-11-23 08:19 | BD ---
EXAMINATION TYPE: Axial Bone Density DATE OF EXAM: 11/23/2021 COMPARISON: NONE CLINICAL HISTORY: osteoporosis . Unspecified fracture. Height: 4'11 Weight: 134 FRAX RISK QUESTIONS: History of Fracture in Adulthood: y Secondary Osteoporosis: RISK FACTORS HISTORY OF: Family History of Osteoporosis: y Diet low in dairy products/other sources of calcium: y Postmenopausal woman: y MEDICATIONS: Thyroid Medications: Which medication: Synthroid How Lon years Additional Medications: asthma,singulair Additional History: fell onbroke left ankle and shoulder EXAM MEASUREMENTS: Bone mineral densitometry was performed using the [employer] System. Bone mineral density as measured about the Lumbar spine is: ----- L1-L4(G/cm2): 0.734 T Score Values are as follows: ----- L2: -4.3 ----- L3: -3.1 ----- L4: -4.1 ----- L1-L4:-3.7 Bone mineral density about the R hip (g/cm2): 0.699 Bone mineral density about the L hip (g/cm2): 0.601 T Score values are as follows: -----R Neck: -2.4 -----L Neck: -3.1 -----R Total: -2.2 -----L Total: -3.3 IMPRESSION: Osteoporosis (T Score less than -2.5). There is increased fracture risk and therapy is usually indicated based on age. Re-Screen 1-2 years. NOTE: T-SCORE=SD OF THE YOUNG ADULT MEAN.
== END | disposition home or self-care (01) ==
LOC: RADBDWWP 07:02
PROVIDERS: ATTEND Orthopaedic Surgery
DX: S42.202A Unspecified fracture of upper end of left humerus, initial encounter for closed fracture (principal); S82.892A Other fracture of left lower leg, initial encounter for closed fracture; S82.852A Displaced trimalleolar fracture of left lower leg, initial encounter for closed fracture; M81.0 Age-related osteoporosis without current pathological fracture; X58.XXXA Exposure to other specified factors, initial encounter
CPT/HCPCS: 77080

== ENCOUNTER → 2021-11-23 | Outpatient (CLI) | payer BC ==
[2021-11-23 17:27] LABS: T4, Free (Free Thyroxine) 1.54 ng/dL (0.800-1.800)
== END | disposition home or self-care (01) ==
LOC: LABWHC1 07:38
PROVIDERS: ATTEND Internal Medicine Endocrinology, Diabetes & Metabolism
DX: R73.02 Impaired glucose tolerance (oral) (principal)
CPT/HCPCS: 36415; 82306; 84439; 84443; 84481

== ENCOUNTER → 2022-05-09 | Outpatient (CLI) | payer BC ==
[2022-05-09 11:50] LABS: T4, Free (Free Thyroxine) 1.54 ng/dL (0.800-1.800)
== END | disposition home or self-care (01) ==
LOC: LABWHC1 07:12
PROVIDERS: ATTEND Internal Medicine Endocrinology, Diabetes & Metabolism
DX: R73.02 Impaired glucose tolerance (oral) (principal)
CPT/HCPCS: 36415; 82306; 82947; 83036; 84439; 84443; 84481

== ENCOUNTER → 2022-05-21 | Outpatient (CLI) | payer BC ==
--- NOTE | 2022-05-22 08:59 | MM ---
Reason for Exam: Screening (asymptomatic). Last mammogram was performed 1 year(s) and 5 month(s) ago. Patient History: Menarche at age 14. First Full-Term at age 26. Postmenopausal. Patient used Hormonal Contraceptives for 10 years. Risk Values: Malaika 5 year model risk: 1.0%. NCI Lifetime model risk: 7.5%. Prior Study Comparison: 09/23/2018 Bilateral Screening Mammogram, [facility]. 10/12/2019 Bilateral Screening Mammogram, [facility]. 12/07/2020 Bilateral Screening Mammogram, [facility]. Tissue Density: There are scattered fibroglandular densities. Findings: Analyzed By CAD. There is no suspicious group of microcalcifications or new suspicious mass in either breast. Overall Assessment: Negative, BI-RAD 1 Management: Screening Mammogram of both breasts in 1 year. A clinical breast exam by your physician is recommended on an annual basis and results should be correlated with mammographic findings. Electronically signed and approved by: Luis Cunningham M.D. Radiologis
== END | disposition home or self-care (01) ==
LOC: RADMAMWWP 06:51
PROVIDERS: ATTEND Obstetrics & Gynecology
DX: Z12.31 Encounter for screening mammogram for malignant neoplasm of breast (principal); Z78.0 Asymptomatic menopausal state
CPT/HCPCS: 77063; 77067

== ENCOUNTER → 2023-02-19 | Outpatient (CLI) | payer BC ==
[2023-02-19 15:07] LABS: HCT 49.8 % (37.2-46.3); HGB 15.5 g/dL (12.0-15.0); MCH 29.1 pg (27.0-32.0); MCHC 31.1 g/dL (32.0-37.0); MCV 93.4 fL (80.0-97.0); Mean Platelet Volume 11.9 fL (9.5-12.2); NRBC Per 100 WBC 0 /100 WBCS (0.0-0.0); Platelet Count 283 X 10*3/uL (140-440); RBC 5.33 X 10*6/uL (4.10-5.20); RDW 12.8 % (11.5-14.5); WBC 10.25 X 10*3/uL (4.50-10.00)
[2023-02-19 15:24] LABS: ALT 44 U/L (8-44); AST 30 U/L (13-35); African American GFR (CKD) 121.2 (60.0-200.0); Albumin 4.5 g/dL (3.8-4.9); Albumin/Globulin Ratio 1.69 (1.60-3.17); Alkaline Phosphatase 116 U/L (41-126); BUN/Creat Ratio 28.98 Ratio (12.00-20.00); Blood Urea Nitrogen 16.4 mg/dL (9.0-27.0); Calcium 9.6 mg/dL (8.7-10.3); Chloride 107 mmol/L (96-109); Globulin 2.7 g/dL (1.6-3.3); Glucose 94 mg/dL (70-110); LDL Cholesterol,Calculated 146.8 mg/dL (0.0-131.0); Non-African American GFR(CKD) 104.6 (60.0-200.0); Potassium 4.6 mmol/L (3.5-5.5); Sodium 142 mmol/L (135-145); Total Protein 7.2 g/dL (6.2-8.2)
== END | disposition home or self-care (01) ==
LOC: LABWHC1 08:56
PROVIDERS: ATTEND Family Medicine
DX: Z00.01 Encounter for general adult medical examination with abnormal findings (principal); E66.3 Overweight; R53.83 Other fatigue
CPT/HCPCS: 36415; 80053; 80061; 85027

== ENCOUNTER → 2023-05-17 | Outpatient (CLI) | payer BC ==
[2023-05-17 13:53] LABS: T4, Free (Free Thyroxine) 1.55 ng/dL (0.80-1.80)
== END | disposition home or self-care (01) ==
LOC: LABWHC1 08:04
PROVIDERS: ATTEND Otolaryngology
DX: E03.9 Hypothyroidism, unspecified (principal); E55.9 Vitamin D deficiency, unspecified; J30.89 Other allergic rhinitis
CPT/HCPCS: 36415; 82306; 82784; 82947; 83036; 84439; 84443; 84481; 86001

== ENCOUNTER → 2023-06-25 | Outpatient (CLI) | payer BC ==
--- NOTE | 2023-06-25 13:52 | MM ---
Reason for Exam: Screening (asymptomatic). Last mammogram was performed 1 year(s) and 1 month(s) ago. Patient History: Menarche at age 14. First Full-Term at age 26. Postmenopausal. Patient used Hormonal Contraceptives for 10 years. Risk Values: Malaika 5 year model risk: 1.1%. NCI Lifetime model risk: 7.4%. Prior Study Comparison: 10/12/2019 Bilateral Screening Mammogram, [facility]. 12/07/2020 Bilateral Screening Mammogram, [facility]. 05/21/2022 Bilateral MG 3D screening mammo w/cad, [facility]. Tissue Density: The breast tissue is heterogeneously dense. This may lower the sensitivity of mammography. Findings: Analyzed By CAD. There is no suspicious group of microcalcifications or new suspicious mass in either breast. Overall Assessment: Benign, BI-RAD 2 Management: Screening Mammogram of both breasts in 1 year. . Patient should continue monthly self-breast exams. A clinical breast exam by your physician is recommended on an annual basis. This exam should not preclude additional follow-up of suspicious palpable abnormalities. Note on Malaika scores and lifetime risk: 1. A Malaika score greater than 3% is considered moderate risk. If this is the case, consider specialist referral to assess eligibility for a risk reducing agent. 2. If overall lifetime risk for the development of breast cancer is 20% or higher, the patient may qualify for future screening with alternating mammogram and breast MRI. Electronically signed and approved by: Luis Cunningham M.D. Radiologis
== END | disposition home or self-care (01) ==
LOC: RADMAMWWP 07:04
PROVIDERS: ATTEND Obstetrics & Gynecology
DX: Z12.31 Encounter for screening mammogram for malignant neoplasm of breast (principal); Z78.0 Asymptomatic menopausal state
CPT/HCPCS: 77063; 77067; 86001

== ENCOUNTER → 2023-06-25 | Outpatient (CLI) | payer BC | END | disposition home or self-care (01) | LOC: LABWHC1 07:06 | PROVIDERS: ATTEND Otolaryngology | DX: Z53.9 Procedure and treatment not carried out, unspecified reason (principal) ==

== ENCOUNTER → 2023-11-25 | Outpatient (CLI) | payer BC ==
--- NOTE | 2023-11-25 09:27 | BD ---
EXAMINATION TYPE: Axial Bone Density DATE OF EXAM: 11/25/2023 CLINICAL HISTORY: 58 years old Female. ICD-10 CODE: M81.0 AGE-RELATED OSTEOPOROSIS W/O CURRENT PATH Height: 59.5 Weight: 165 FRAX RISK QUESTIONS: Family History (Parent hip fracture): no History of Fracture in Adulthood: yes, many bilat forearms and lt hand, lt ankle, lt shoulder, rt archie l, bilat clavicles Secondary Osteoporosis: no RISK FACTORS HISTORY OF: History of Wrist Fracture: yes When: 20 yrs ago MEDICATIONS: Thyroid Medications: yes Which medication: Synthroid How Lon+ years Osteoporosis Medications: yes Which medication: alendronate How Lon years EXAM MEASUREMENTS: Bone mineral densitometry was performed using the [employer]. Bone mineral density as measured about the Lumbar spine is: ----- L1-L4(G/cm2): 0.778 T Score Values are as follows: ----- L1: -3.9 ----- L2: -3.6 ----- L3: -3.1 ----- L4: -3.1 ----- L1-L4: -3.4 Z Score Values are as follows: ----- L1: -3.3 ----- L2: -3.0 ----- L3: -2.5 ----- L4: -2.6 ----- L1-L4: -2.8 Bone mineral density has: Increased 6% since study of: 11/23/2021 Bone mineral density about the R hip (g/cm2): 0.761 Bone mineral density about the L hip (g/cm2): 0.671 T Score values are as follows: -----R Neck: -2.0 -----L Neck: -2.5 -----R Total: -2.0 -----L Total: -2.7 Z Score values are as follows: -----R Neck: -1.2 -----L Neck: -1.7 -----R Total: -1.5 -----L Total: -2.2 Bone mineral density has: Increased 8.5% since study of: 11/23/2021 FRAX%s: The graph provided illustrates a 16.5% chance for a major osteoporotic fx and a 3.3% chance f or the hips probability for fx in 10 years time. IMPRESSION: Osteoporosis (T Score less than -2.5). There is increased fracture risk and therapy is usually indicated based on age. Re-Screen 1-2 years. NOTE: T-SCORE=SD OF THE YOUNG ADULT MEAN.
== END | disposition home or self-care (01) ==
LOC: RADBDWWP 07:08
PROVIDERS: ATTEND Internal Medicine Rheumatology
DX: M81.0 Age-related osteoporosis without current pathological fracture (principal)
CPT/HCPCS: 77080

== ENCOUNTER → 2024-02-17 | Outpatient (CLI) | payer BC ==
[2024-02-17 12:28] LABS: HGB 15.7 g/dL (12.0-15.0); MCH 29.8 pg (27.0-32.0); NRBC Per 100 WBC 0 X 10*3/uL (0.00-0.01); Platelet Count 276 X 10*3/uL (140-440); RBC 5.27 X 10*6/uL (4.10-5.20); RDW 12.8 % (11.5-14.5); WBC 9.34 X 10*3/uL (4.50-10.00)
[2024-02-17 12:38] LABS: ALT 58 U/L (8-44); AST 39 U/L (13-35); Albumin 4.6 g/dL (3.8-4.9); Albumin/Globulin Ratio 1.53 Ratio (1.60-3.17); Alkaline Phosphatase 103 U/L (41-126); BUN/Creat Ratio 19.33 Ratio (12.00-20.00); Blood Urea Nitrogen 11.6 mg/dL (9.0-27.0); Calcium 9.7 mg/dL (8.7-10.3); Carbon Dioxide 20.3 mmol/L (21.6-31.8); Chloride 104 mmol/L (96-109); Chol/HDL Ratio 3.91 Ratio; Glucose 95 mg/dL (70-110); LDL Cholesterol,Calculated 148.9 mg/dL (0.0-131.0); Potassium 4.5 mmol/L (3.5-5.5); Sodium 141 mmol/L (135-145); Total Bilirubin 0.4 mg/dL (0.3-1.2); Total Protein 7.6 g/dL (6.2-8.2)
== END | disposition home or self-care (01) ==
LOC: LABWHC1 07:14
PROVIDERS: ATTEND Family Medicine
DX: Z00.01 Encounter for general adult medical examination with abnormal findings (principal); E66.3 Overweight; R53.83 Other fatigue
CPT/HCPCS: 36415; 80053; 80061; 85027

== ENCOUNTER → 2024-04-09 | Outpatient (CLI) | payer BC ==
[2024-04-09 11:35] LABS: ALT 58 U/L (8-44); AST 39 U/L (13-35); Albumin 4.4 g/dL (3.8-4.9); Albumin/Globulin Ratio 1.63 Ratio (1.60-3.17); Alkaline Phosphatase 93 U/L (41-126); Calcium 9.4 mg/dL (8.7-10.3); Chloride 105 mmol/L (96-109); Globulin 2.7 g/dL (1.6-3.3); Glucose 92 mg/dL (70-110); Potassium 4.3 mmol/L (3.5-5.5); Sodium 139 mmol/L (135-145); T4, Free (Free Thyroxine) 1.49 ng/dL (0.80-1.80); Total Bilirubin 0.4 mg/dL (0.3-1.2); Total Protein 7.1 g/dL (6.2-8.2)
== END | disposition home or self-care (01) ==
LOC: LABWHC1 06:53
PROVIDERS: ATTEND Internal Medicine Endocrinology, Diabetes & Metabolism
DX: E03.9 Hypothyroidism, unspecified (principal); E21.0 Primary hyperparathyroidism; E55.9 Vitamin D deficiency, unspecified; R73.02 Impaired glucose tolerance (oral)
CPT/HCPCS: 36415; 80053; 82306; 83036; 84439; 84443; 84481

== ENCOUNTER → 2024-06-30 | Outpatient (CLI) | payer BC ==
--- NOTE | 2024-07-07 12:24 | MM ---
Reason for Exam: Screening (asymptomatic). Last screening mammogram was performed 12 month(s) ago. Patient History: Menarche at age 14. First Full-Term at age 26. Postmenopausal. Patient used Hormonal Contraceptives for 10 years. Risk Values: Malaika 5 year model risk: 1.1%. NCI Lifetime model risk: 7.2%. Prior Study Comparison: 12/07/2020 Bilateral Screening Mammogram, [facility]. 05/21/2022 Bilateral MG 3D screening mammo w/cad, [facility]. 06/25/2023 Bilateral MG 3D screening mammo w/cad, [facility]. Tissue Density: There are scattered areas of fibroglandular density. Findings: Analyzed By CAD. Right breast: There is no suspicious group of microcalcifications or new suspicious mass. Left breast: There is no suspicious group of microcalcifications or new suspicious mass. Overall Assessment: Negative, BI-RAD 1 Management: Screening Mammogram of both breasts in [address] [facility] will attempt to contact patient to return for supplemental views and ultrasound if indicated. Patient should continue monthly self-breast exams. A clinical breast exam by your physician is recommended on an annual basis. This exam should not preclude additional follow-up of suspicious palpable abnormalities. Note on Malaika scores and lifetime risk: 1. A Malaika score greater than 3% is considered moderate risk. If this is the case, consider specialist referral to assess eligibility for a risk reducing agent. 2. If overall lifetime risk for the development of breast cancer is 20% or higher, the patient may qualify for future screening with alternating mammogram and breast MRI. Electronically signed and approved by: Yovani Dixon DO
== END | disposition home or self-care (01) ==
LOC: RADMAMWWP 13:15
PROVIDERS: ATTEND Obstetrics & Gynecology
DX: Z12.31 Encounter for screening mammogram for malignant neoplasm of breast
CPT/HCPCS: 77063; 77067

== ENCOUNTER → 2024-08-24 | Outpatient (CLI) | payer BC ==
[2024-08-24 13:43] LABS: Basophils # (A) 0.07 X 10*3/uL (0.00-0.10); Basophils % (A) 0.7 %; Eosinophils % (A) 5.2 %; HCT 45.1 % (37.2-46.3); HGB 14.3 g/dL (12.0-15.0); Lymphocytes # (A) 3.36 X 10*3/uL (0.90-5.00); Lymphocytes % (A) 34.7 %; MCH 29.5 pg (27.0-32.0); MCHC 31.7 g/dL (32.0-37.0); MCV 93.2 FL (80.0-97.0); Mean Platelet Volume 11.9 FL (9.5-12.2); Monocytes # (A) 0.74 X 10*3/uL (0.20-1.00); Monocytes % (A) 7.6 %; NRBC Per 100 WBC 0 X 10*3/uL (0.00-0.01); Neutrophils # (A) 4.99 X 10*3/uL (1.80-7.70); Neutrophils % (A) 51.5 %; Platelet Count 261 X 10*3/uL (140-440); RBC 4.84 X 10*6/uL (4.10-5.20); RDW 13.2 % (11.5-14.5); WBC 9.69 X 10*3/uL (4.50-10.00)
[2024-08-24 14:16] LABS: BUN/Creat Ratio 17.29 Ratio (12.00-20.00); Blood Urea Nitrogen 12.1 mg/dL (9.0-27.0); Glucose 88 mg/dL (70-110)
[2024-08-24 14:17] LABS: ALT 51 U/L (8-44); AST 32 U/L (13-35); Albumin 4.3 g/dL (3.8-4.9); Albumin/Globulin Ratio 1.72 Ratio (1.60-3.17); Alkaline Phosphatase 100 U/L (41-126); Calcium 9.3 mg/dL (8.7-10.3); Carbon Dioxide 24.2 mmol/L (21.6-31.8); Chloride 105 mmol/L (96-109); Globulin 2.5 g/dL (1.6-3.3); Potassium 4.4 mmol/L (3.5-5.5); Sodium 141 mmol/L (135-145); Total Bilirubin 0.2 mg/dL (0.3-1.2); Total Protein 6.8 g/dL (6.2-8.2)
== END | disposition home or self-care (01) ==
LOC: LABWHC1 07:04
PROVIDERS: ATTEND Internal Medicine Gastroenterology
DX: R94.5 Abnormal results of liver function studies (principal)
CPT/HCPCS: 36415; 80053; 85025

== ENCOUNTER → 2024-10-04 | Outpatient (CLI) | payer BC ==
--- NOTE | 2024-10-04 08:32 | US ---
EXAMINATION TYPE: US liver DATE OF EXAM: 10/04/2024 COMPARISON: NONE CLINICAL INDICATION: Female, 59 years old with history of R94.5 ABNORMAL RESULTS OF LIVER FUNCTION ST UDIES; TECHNIQUE: Grayscale and color Doppler imaging of the right upper quadrant was performed. FINDINGS: EXAM MEASUREMENTS: Liver Length: 14.9 cm Gallbladder Wall: 0.2 cm CBD: 0.3 cm Right Kidney: 9.9 x 4.2 x 4.9 cm Pancreas: visualized portions wnl, limited by overlying midline bowel gas Liver: increased attenuation, decreased visualization of vessels suggestive of fatty infiltrate Gallbladder: 1.5cm stone Evidence for sonographic Suazo's sign: no CBD: visualized portions wnl, limited by overlying bowel gas Right Kidney: wnl IMPRESSION: 1. No evidence for acute process. 2. Hepatic steatosis. 3. Cholelithiasis. [facility] Vero Schwartz, , 10/04/2024 8:30 AM
== END | disposition home or self-care (01) ==
LOC: RADUSWWP 07:06
PROVIDERS: ATTEND Internal Medicine Gastroenterology
DX: K76.0 Fatty (change of) liver, not elsewhere classified (principal); K80.20 Calculus of gallbladder without cholecystitis without obstruction; R94.5 Abnormal results of liver function studies
CPT/HCPCS: 76705

== ENCOUNTER → 2025-02-23 | Outpatient (CLI) | payer BC ==
[2025-02-23 10:16] LABS: Basophils # (A) 0.05 X 10*3/uL (0.00-0.10); Basophils % (A) 0.6 %; Eosinophils # (A) 0.34 X 10*3/uL (0.04-0.35); Eosinophils % (A) 3.8 %; HCT 47.2 % (37.2-46.3); HGB 15.2 g/dL (12.0-15.0); Lymphocytes # (A) 3.14 X 10*3/uL (0.90-5.00); Lymphocytes % (A) 35.2 %; MCH 29.6 pg (27.0-32.0); MCHC 32.2 g/dL (32.0-37.0); MCV 91.8 FL (80.0-97.0); Mean Platelet Volume 12.8 FL (9.5-12.2); Monocytes # (A) 0.52 X 10*3/uL (0.20-1.00); Monocytes % (A) 5.8 %; NRBC Per 100 WBC 0 X 10*3/uL (0.00-0.01); Neutrophils # (A) 4.84 X 10*3/uL (1.80-7.70); Neutrophils % (A) 54.4 %; Platelet Count 258 X 10*3/uL (140-440); RBC 5.14 X 10*6/uL (4.10-5.20); RDW 12.7 % (11.5-14.5); WBC 8.91 X 10*3/uL (4.50-10.00)
[2025-02-23 11:13] LABS: Hepatitis B Surface Antigen Nonreactive (Nonreactive); Hepatitis C IgG Antibody Nonreactive (Nonreactive)
[2025-02-23 11:36] LABS: ALT 35 U/L (8-44); AST 33 U/L (13-35); Albumin 4.3 g/dL (3.8-4.9); Albumin/Globulin Ratio 1.79 Ratio (1.60-3.17); Alkaline Phosphatase 80 U/L (41-126); BUN/Creat Ratio 25.33 Ratio (12.00-20.00); Blood Urea Nitrogen 15.2 mg/dL (9.0-27.0); Calcium 9.4 mg/dL (8.7-10.3); Carbon Dioxide 19.7 mmol/L (21.6-31.8); Chloride 107 mmol/L (96-109); Globulin 2.4 g/dL (1.6-3.3); Glucose 100 mg/dL (70-110); Potassium 4.6 mmol/L (3.5-5.5); Sodium 139 mmol/L (135-145); Total Bilirubin 0.4 mg/dL (0.3-1.2); Total Protein 6.7 g/dL (6.2-8.2)
== END | disposition home or self-care (01) ==
LOC: LABWHC1 07:26
PROVIDERS: ATTEND Nurse Practitioner Family
DX: R94.5 Abnormal results of liver function studies (principal)
CPT/HCPCS: 36415; 80053; 85025; 86803; 87340

== ENCOUNTER → 2025-04-15 | Outpatient (CLI) | payer BC ==
[2025-04-15 10:47] LABS: T4, Free (Free Thyroxine) 1.46 ng/dL (0.80-1.80)
== END | disposition home or self-care (01) ==
LOC: LABWHC1 06:55
PROVIDERS: ATTEND Internal Medicine Endocrinology, Diabetes & Metabolism
DX: E03.9 Hypothyroidism, unspecified (principal); E06.3 Autoimmune thyroiditis; E55.9 Vitamin D deficiency, unspecified
CPT/HCPCS: 36415; 82306; 82947; 83036; 84439; 84443; 84450; 84460; 84481

== ENCOUNTER → 2025-05-26 | Outpatient (CLI) | payer BC ==
[2025-05-27 12:43] LABS: Honeybee Venom IgE Class CLASS 0; Paper Wasp IgE <0.10 kU/L (<0.10); Paper Wasp IgE Class CLASS 0; White-Faced Hornet IgE <0.10 kU/L (<0.10); White-Faced Hornet IgE Class CLASS 0; Yellow Hornet IgE <0.10 kU/L (<0.10); Yellow Hornet IgE Class CLASS 0; Yellow Jacket IgE Class CLASS 0
== END | disposition home or self-care (01) ==
LOC: LABWHC1 07:23
PROVIDERS: ATTEND Nurse Practitioner Family
DX: Z91.030 Bee allergy status (principal)
CPT/HCPCS: 36415; 82785; 86003